=== PATIENT | male | born 1975 | race Two or more races ===

== ENCOUNTER 2023-11-22 11:49 | Outpatient (REF) | payer MEDICAID, SELFPAY ==
[2023-11-22 13:36] LABS: Estimated Average Glucose 223 mg/dL; Hemoglobin A1c % 9.4 % (<6.0)
[2023-11-22 14:01] LABS: Alanine Aminotransferase 46 U/L (0-40); Albumin Level 4.4 g/dL (3.5-5.0); Alkaline Phosphatase 62 U/L (39-117); Anion Gap 16 (12-20); Aspartate Amino Transferase 22 U/L (5-37); Bilirubin Total 0.4 mg/dL (0.0-1.0); Blood Urea Nitrogen 11 mg/dL (9-16); Calcium 9.5 mg/dL (8.4-10.2); Carbon Dioxide 24 mmol/L (22-29); Chloride 102 mmol/L (96-108); Cholesterol 281 mg/dL (<200); Estimated Glomerular Filt Rate > 60; Glucose Random 209 mg/dL (60-115); HDL Cholesterol 25 mg/dL (>40); Sodium 138 mmol/L (135-145); TSH reflex Free T4 0.37 uIU/mL (0.32-4.0); Total Protein 7.8 g/dL (6.5-8.0); Triglycerides 1301 mg/dL (<150)
[2023-11-22 14:21] LABS: Reflex LDLD? No
[2023-11-23 01:59] LABS: CT PCR NOT DETECTED (Not Detect.); NG PCR NOT DETECTED (Not Detect.)
[2023-11-23 08:24] LABS: Syphilis Screen Nonreactive (Nonreactive)
[2023-11-23 08:28] LABS: HBc Num1 0.11 S/CO (0.00-0.79); HBsAGNum1 0.29 S/CO (0.00-0.99); HIV AB/AG Nonreactive (Nonreactive); HIV Num 1 0.04 S/CO (0.00-0.99); Hepatitis A Antibody IgG REACTIVE (Nonreactive); Hepatitis B Core Antibody Nonreactive (Nonreactive); Hepatitis B Surface Antigen Negative (Negative); ~Hepatitis B Surface Antibody NONREACTIVE (Nonreactive); ~Hepatitis C Antibody Nonreactive (Nonreactive)
== END 2023-11-22 11:50 | disposition home or self-care (01) ==
LOC: HO.HHCL 11:49
PROVIDERS: Visit Provider Family Medicine
DX: Z11.3 Encounter for screening for infections with a predominantly sexual mode of transmission (principal); R00.2 Palpitations; Z13.220 Encounter for screening for lipoid disorders; Z01.84 Encounter for antibody response examination; Z83.3 Family history of diabetes mellitus; Z13.1 Encounter for screening for diabetes mellitus
CPT/HCPCS: 0353U; 80053; 80061; 83036; 84443; 86704; 86706; 86708; 86780; 86803; 87340; 87389

== ENCOUNTER 2023-12-12 14:49 | Outpatient (AMB) | payer MEDICAID, SELFPAY ==
--- NOTE | 2023-12-12 14:53 | A.OFFVIS_ITS ---
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 Required: No Accompanied by: Self / Same As Patient Allergies No Known Allergies [No Known Allergies*] Allergy (Unverified 12/12/23 14:58) Medication List - Last Reconciled 12/12/23 by Dio Robb MD alcohol swabs (Alcohol Prep Pads) pad topical QID blood sugar diagnostic (FreeStyle Lite Strips) As directed blood-glucose meter (FreeStyle Mcconnell Lite kit) As directed lancets (FreeStyle Lancets) As directed metformin ER 500 mg PO rosuvastatin 5 mg PO DAILY HPI Comments Details: 48-year-old male patient presenting with a soft tissue mass that has been present on his right upper leg for least 5 years. He reports it was initially on his right wrist and then jumped down to his right hip with has gradually increased in size. Denies any pain, redness or discharge the site. He is requesting excision. [facility] Family History Mother Cancer of unknown origin Social History Alcohol intake: current Alcohol intake frequency: holidays/special occasions only Patient Tobacco Use Status: Never used Tobacco Review of Systems Const All systems reviewed & are unremarkable except as noted in HPI and below Physical Exam Vital Signs: Last Vital Signs Pulse 61 12/12/23 15:00 BP 129/76 12/12/23 15:00 BMI result Body Mass Index 30.5 Const General: cooperative and no acute distress Nutritional Appearance: well nourished Orientation/consciousness: patient oriented x3 Limitations: no limitations HEENT Head: Yes normocephalic and Yes atraumatic Ears: hearing grossly normal bilaterally Resp Effort & Inspection: normal respiratory effort, no audible wheezes, no cough and no respiratory distress Cardio Jugular venous distension: no JVD GI Inspection: Yes normal to inspection Abdomen image: 2 1. 3 cm soft tissue mass within the subcutaneous tissue, mobile, most consistent with lipoma. No overlying skin changes appreciated. Nontender to palpation. Skin Other: Warm, dry, no rash Neuro General: patient oriented x3 Extrem General: Yes no clubbing, cyanosis or edema Assessment & Plan Assessment & Plan (1) Lipoma: Code(s): D17.9 - Benign lipomatous neoplasm, unspecified Category: Medical Qualifiers: Lipoma location: lower extremity Laterality: right Qualified Code(s): D17.23 - Benign lipomatous neoplasm of skin and subcutaneous tissue of right leg Plan 48-year-old male patient presenting with a soft tissue mass of the right upper extremity measuring 3 cm in diameter, most consistent with a lipoma. I recommended an excision under local anesthesia and after discussion of the procedure, risks and alternatives, consents to excision of lipoma right leg. Coding Level of Care Code New Pt Level 4 (98424) Diagnoses Lipoma of right lower extremity D17.23 Lipoma location: lower extremity Laterality: right
[2023-12-12 15:00] VITALS: BP 129/76; PULSE 61; BMI 30.5
== END 2023-12-12 15:05 | disposition home or self-care (01) ==
PROVIDERS: PCP Family Medicine; Referring Provider Family Medicine; Visit Provider Surgery
DX: D17.23 Benign lipomatous neoplasm of skin and subcutaneous tissue of right leg (principal)
CPT/HCPCS: 99204

== ENCOUNTER → 2023-12-12 14:49 | Outpatient (BNVA) | payer MEDICAID, SELFPAY | PROVIDERS: PCP Family Medicine; Visit Provider Surgery | DX: D17.23 Benign lipomatous neoplasm of skin and subcutaneous tissue of right leg (principal) | CPT/HCPCS: 99202 ==

== ENCOUNTER 2023-12-27 | Outpatient (REF) | payer MEDICAID, SELFPAY ==
[2023-12-27 12:47] VITALS: BP 132/77; PULSE 60; RESP 19; TEMP 37.1; O2SAT 97; BMI 30.5
--- NOTE | 2023-12-27 13:43 | P.OP_ITS ---
Operative Note Operative Note Date of Service: 12/27/23 Narrative: Preoperative diagnosis: Lipoma right hip Postoperative diagnosis: Same Procedure: Excision of lipoma right hip Surgeon: Dio Robb MD [employer] Specialist: None Anesthesia: Lidocaine 1% with epinephrine Indications for procedure: 48-year-old male patient presenting with a soft tissue mass located in the right hip measuring approximately 3 cm in diameter. Lesion is mobile within the subcutaneous tissue most consistent with a lipoma. Operative findings: 3 cm lipoma right hip Specimen: Lipoma right hip Estimated blood loss: Less than 1 mL Complications: None Procedure details: Patient was brought to the OR minor surgery room and placed in a supine position. The site of surgery was confirmed by the patient in the right hip. After assuring informed consent, the skin was prepped with Betadine and draped in a sterile fashion. Local anesthesia was infiltrated around the palpable lipoma. A transverse incision was then made with a scalpel and carried out through subcutaneous tissue up to the lipoma. Combination of blunt and sharp dissection was used to dissect the lipoma from the surrounding subcutaneous tissue. Hemostasis was assured using 3-0 Polysorb. Dermis was then reapproximated using interrupted 3-0 Polysorb sutures. Skin was closed using a running subcuticular 4-0 Polysorb suture. Sterile dressings consisting of Steri-Strips, 2 x 2 gauze and Tegaderm were then applied. The patient tolerated the procedure well. He was discharged in stable condition.
== END 2023-12-27 00:01 | disposition home or self-care (01) ==
LOC: HO.MS
PROVIDERS: Visit Provider Surgery
PROC: (CPT 11403; principal; 2023-12-27 13:00)
DX: D17.23 Benign lipomatous neoplasm of skin and subcutaneous tissue of right leg (principal)
CPT/HCPCS: 11403; 88304

== ENCOUNTER → 2023-12-27 13:00 | Outpatient (BNV) | payer MEDICAID, SELFPAY | PROVIDERS: Visit Provider Surgery | DX: D17.23 Benign lipomatous neoplasm of skin and subcutaneous tissue of right leg (principal) | CPT/HCPCS: 27047 ==

== ENCOUNTER 2024-01-17 15:55 | Outpatient (REF) | payer MEDICAID, SELFPAY ==
[2024-01-17 18:05] LABS: Alanine Aminotransferase 23 U/L (0-40); Albumin Level 4.4 g/dL (3.5-5.0); Alkaline Phosphatase 58 U/L (39-117); Aspartate Amino Transferase 15 U/L (5-37); Bilirubin Direct 0.1 mg/dL (0.0-0.5); Bilirubin Total 0.3 mg/dL (0.0-1.0); Cholesterol 125 mg/dL (<200); HDL Cholesterol 23 mg/dL (>40); Total Protein 7.2 g/dL (6.5-8.0); Triglycerides 480 mg/dL (<150)
== END 2024-01-17 15:56 | disposition home or self-care (01) ==
LOC: HO.HHCL 15:55
PROVIDERS: Visit Provider Family Medicine
DX: E11.65 Type 2 diabetes mellitus with hyperglycemia (principal)
CPT/HCPCS: 36415; 80061; 80076

== ENCOUNTER 2025-02-03 09:20 | Outpatient (REF) | payer SELFPAY ==
--- OUTSIDE RECORDS SUMMARY | 2025-02-03 10:09 | XMS_ITS | Encounter Summary ---
Author Organization [facility] Address [address] [place] [address] Care Team Providers Care Wirer Maintenance Name Role Phone Kay Wilkes MD Primary Care Provider [phone] Jose Antonio Singer PharmD Unavailable [phone] Encounter Details Date Type Department Care Team ([facility] st Contact Info) Description 11/23/2023 Orders Only [facility] [address] [place], [place] [phone] Kay Wilkes MD [address] [place], [place] [phone] Social History Tobacco Use Types Packs/Day Years Used Date Smoking Tobacco: Former Cigarettes Smokeless Tobacco: Never Depression Answer Date Recorded Patient Health Questionnaire-9 Score 0 11/22/2023 Patient Health Questionnaire-9 Score 0 11/22/2023 Last PHQ-9: Questionnaire Data Not on file 0 11/22/2023 Housing Stability Answer Date Recorded What is your housing situation today? I have ana garcia 11/22/[address] you li ve. Do you have problems with any of the following? None of the above 11/22/2023 Food Insecurity Answer Date Recorded Within the past 12 months, y ou worried that your food would run out before you got money to buy more: Never True 11/22/2023 Within the past 12 months,th e food you bought just didn't last and you didn't have enough money to get more: Never True Transportation Answer Date Recorded In the past 12 months, has l ack of transportation kept you from medical appts, meetings, work or from getting things needed for daily living? No 11/22/2023 Utilities Answer Date Recorded In the past 12 months, has t he electric, gas, oil or water company threatened to shut off services in your home? No 11/22/2023 Depression Answer Date Recorded Patient Health Questionnaire-2 Score 0 11/22/2023 Sex and Gender Information Value Date Recorded Sex Assigned at Male 05/09/2022 10:20 AM EDT Legal Sex Male 10:20 AM EDT Gender Identity Male 05/09/2022 10:20 AM EDT Sexual Orientation Straight 05/09/2022 10 :20 AM EDT documented as of this encounter Plan of Treatment Upcoming Encounters Date Type Department Care Team (Late st Contact Info) Description 02/26/2025 4:00 PM EDT Office Visit [facility] [address] [place] [address] [phone] Fannie Addison [address] [place] [address] [phone] documented as of this encounter Procedures Procedure Name Priority Date/Time Associated Diagnosis Comments HEPATIC FUNCTION PANEL Routine 01/17/2024 3:59 PM EDT LIPID PANEL, STANDARD Routine 01/17/2024 3:59 PM EDT GROSS AND MICROSCOPIC LEVEL 3 Routine 12/27/2023 1:29 PM EDT documented in this encounter Results * (ABNORMAL) Lipid Panel, Standard (01/17/2024 3:59 PM EDT) Triglycerides 480(H) <150 mg/dL [facility] Comment:Desirable Triglyceri de: less than 150 mg/dLBorderline High Triglyceride 150-199 mg/dLHigh Triglyceride: 200-499 mg/dLVery High Triglyceride: greater than or equal to 5OO mg/dL Cholesterol 125 <200 mg/dL [facility] Comment:Desirable Cholestero l: less than 200 mg/dLBorderline High Cholesterol: 200-239 mg/dLHigh Cholesterol: greater than 239 mg/dL LDL Cholesterol Calculated TNP <100 mg/dL [facility] Comment:Unable to calculate the LDL. The formula of Friedwald,Copeland, and Alejandro is only valid if the triglycerides areless than 400 mg/dl. HDL Cholesterol 23(L) >40 mg/dL [facility] Comment:Desirable HDL: great er than 40 mg/dL Note: This HDL assay may give artificially low results in patients with liver disease. 01/17/2024 3:59 PM EDT 01/17/2024 5:28 PM EDT Kay Wilkes MD LAB BLOOD ORDERABLES Final Resul t Performing Organization Address [facility] Co de Phone Number [facility] [address] [place] [phone] * Hepatic Function Panel (01/17/2024 3:59 PM EDT) Bilirubin, Total 0.3 0.0 - 1.0 mg/dL [facility] Bilirubin, Direct 0.1 0.0 - 0.5 mg/dL [facility] Aspartate Amino Transferase 15 5 - 37 U/L [facility] Alanine Aminotransferase 23 0 - 40 U/L [facility] Total Protein 7.2 6.5 - 8.0 g/dL [facility] Albumin Level 4.4 3.5 - 5.0 g/dL [facility] Alkaline Phosphatase 58 39 - 117 U/L [facility] 01/17/2024 3:59 PM EDT 01/17/2024 5:28 PM EDT Kay Wilkes MD LAB BLOOD ORDERABLES Final Resul t Performing Organization Address [facility] Co de Phone Number [facility] [address] [place] [phone] * Gross and Microscopic Level 3 (12/27/2023 1:29 PM EDT) 12/27/2023 1:29 PM EDT 12/27/2023 2:23 PM EDT Narrative [facility] - 12/28/2023 3:00 PM EDT ----- ------- Name: NikoElias Hatch Age/Sex: 48/M : 1975 Unit#: [id number] Attend Dr: Dio Robb MD Re12/27/23 Status: REG REF Location: [facility] Disch: ----- ------- SPEC : [id number] RECD: 12/27/23-1423 STATUS: TAMMY ALEJANDRO NUM: [id number] LAUREN: 12/27/23-1329 [facility] DR: Dio Robb MD ENTERED: 12/27/23-1434 SP TYPE: Surgical OTHR DR: [facility] ORDERED: Gross Micro L3 Diagnosis Soft tissue, right hip, excision: Mature lobulated adipose tissue consistent with lipoma. Clinical History Benign lipomatous neoplasm of skin. Microscopic Description Microscopic sections reviewed. Material Received Right hip lipoma Gross Description Received in formalin labeled right hip lipoma is a 7.0 x 4.5 x 0.5-1.0 cm pale, joseph-yellow multilobular portion of adipose tissue with scant attached thin and delicate joseph-white fibromembranous tissue. The margins are inked and the specimen is serially sectioned to reveal homogeneous, pale, joseph-yellow lobular fat with thin and delicate joseph- white fibrous septae. No hemorrhagic or necrotic foci are identified. No lymph nodes are identified. Clinician Oncology sections are submitted in cassettes [id number]. CEDS Copies To: [facility] [address] [place] [address] Dio Robb MD [address] [place] [address] [place], [place] [address] ----- ------- Signed (signature on file) Jeanette Skaggs MD 12/28/23 1500 ----- ------- END OF REPORT us Generic External Data Provider LAB CYTOLOGY EMELIA LUIS Final Result [facility] [address] [place] [phone] documented in this encounter Visit Diagnoses Not on filedocumented in this encounter Additional Health Concerns Assessment Noted Time PHQ-9 Depression Total Score: 0 11/22/19 24 9:18 AM EDT documented as of this encounter Care Teams Wirer Maintenance Relationship Specialty Start Date End Date Kay Wilkes [facility] [address] PCP - General Family Medicine 11/22/23 Jose Antonio Singer, [place] [address] Pharmacist Internal Medicine 12/28/23 documented as of this encounter
--- OUTSIDE RECORDS SUMMARY | 2025-02-03 10:09 | XMS_ITS | Clinical Summary ---
Author Organization [facility] Address [address] [place] [address] Care Team Providers Care Rehabilitation Liaison Name Role Phone Unavailable Primary Care Provider Unavailabl e Source Comments PLEASE NOTE, if this patient is a minor, it may be UNLAWFUL to discuss sensitive information that is contained in these records (such as FAMILY PLANNING, MENTAL HEALTH or SUBSTANCE ABUSE) with the minor patient's parent or other person without the patient's specific authorization.[facility] Social History Tobacco Use Types Packs/Day Years Used Date Smoking Tobacco: Never Assessed Social Connections Answer Date Recorded Connectedness 0 03/26/2024 Financial Resource Strain Answer Date R ecorded Financial Resource Strain 0 2023 Stress Answer Date Recorded Stress 0 03/26/2024 Physical Activity Answer Date Recorded Physical Activity 0 03/26/2024 Food Insecurity Answer Date Recorded Food 0 04/05/2024 Transportation Needs Answer Date Record ed Transportation 0 03/26/2024 Housing Stability Answer Date Recorded Housing 0 03/26/2024 Safety and Environment Answer Date Fritz rded Safety 0 03/26/2024 Utilities Answer Date Recorded Utilities 0 03/26/2024 Employment Answer Date Recorded Stress 0 03/26/2024 Sex and Gender Information Value Date Recorded Sex Assigned at Male 10/02/2023 9:52 AM PDT Legal Sex Male 9:52 AM PDT Gender Identity Male 10/02/2023 9:52 AM PDT Sexual Orientation Straight 10/02/2023 9: 52 AM PDT Last Filed Vital Signs Vital Sign Reading Time Taken Comments Blood Pressure 114/71 04/02/2024 2:52 PM EDT Pulse 72 04/02/2024 2:52 PM EDT Temperature - - Respiratory Rate - - Oxygen Saturation - - Inhaled Oxygen Concentration - - Weight - - Height - - Body Mass Index - - Plan of Treatment Health Maintenance Due Date Last Done Comments Anxiety Screening [address] Colonography 2021 Colonoscopy 2021 Colorectal Cancer Screening 2021 FIT/gFOBT 2021 Fecal DNA 2021 Flexible Sigmoidoscopy 2021 [id number] (2023- season) 2024 Imm-Hepatitis B (3 of 3 - 19 + 3-dose series) 05/22/2024 03/27/2024, 07/27/2022 Alcohol and Drug Screen 07/10/2024 Depression Annual Screen 07/10/2024 Imm-Influenza (#1) 2025 07/27/2022 Hypertension Screening (#1) 04/02/2025 Diabetes Screening 02/12/2027 02/13/2024, 11/22/2023 Lipid Screening 01/16/2029 01/17/2024 Imm-DTaP/Tdap/Td (2 - Td or Tdap) 11/21/2033 024 HIV Screening Completed 11/22/2023, 11/22/2023 Hepatitis C Screening Completed 11/22/[address] [employer]
--- OUTSIDE RECORDS SUMMARY | 2025-02-03 10:09 | XMS_ITS | Clinical Summary ---
Author Organization [facility] Address [address] [place] [address] Care Team Providers Care Deposition Operator Name Role Phone Deanna Harper MD Primary Care Provider Social History Tobacco Use Types Packs/Day Years Used Date Smoking Tobacco: Never Assessed Sex and Gender Information Value Date Recorded Sex Assigned at Not on file Legal Sex Male 2:12 AM EST Gender Identity Not on file Sexual Orientation Not on file Plan of Treatment Health Maintenance Due Date Last Done Comments DTaP,Tdap,and Td Vaccines (1 - Tdap) 1995 Hepatitis B Vaccines (1 of 3 - 19+ 3-dose series) 1995 COVID-19 Vaccine ( - 2023-2 5 season) 2024 Depression Screening 07/10/2024 Influenza Vaccine (#1) 2025 HIB Vaccines Aged Out No longer eligi ble based on patient's age to complete this topic HPV Vaccines Aged Out No longer eligi ble based on patient's age to complete this topic Hepatitis A Vaccines Aged Out No long er eligible based on patient's age to complete this topic IPV Vaccines Aged Out No longer eligi ble based on patient's age to complete this topic MMR Vaccines Aged Out No longer eligi ble based on patient's age to complete this topic Meningococcal ACWY Vaccine Aged Out N o longer eligible based on patient's age to complete this topic Meningococcal B Vaccine Aged Out No l onger eligible based on patient's age to complete this topic Pneumococcal Vaccine: Pediat rics (0 to 5 Years) and At-Risk Patients (6 to 49 Years) Aged Out No longer eligible b ased on patient's age to complete this topic RSV Immunization Patients Un sree 20 months Aged Out No longer eligible b ased on patient's age to complete this topic Varicella Vaccines Aged Out No longer eligible based on patient's age to complete this topic Care Teams Deposition Operator Relationship Specialty Start Date End Date Deanna Harper MD PCP - General Internal Medicine 03/26/18
[2025-02-03 11:37] LABS: MANUAL DIFF FLAG NO
[2025-02-03 11:40] LABS: Hematocrit 45.2 % (42.0-52.0); Hemoglobin 15.0 g/dl (14.0-18.0); Imm Gran Abs Auto 0.02 X10*3/uL (0.00-0.03); Imm Gran Pct Auto 0.3 % (0.0-0.4); Lymphocytes Absolute Auto 2.5 X10*3/uL (1.2-4.9); Mean Corpuscular HGB Conc 33.2 g/dl (31.0-36.0); Mean Corpuscular Hemoglobin 28.0 pg (27.0-33.0); Mean Corpuscular Volume 84.5 fL (80.0-98.0); NRBC Abs Auto 0.000 X10*3/uL (0.0-0.012); NRBC Pct Auto 0.0 /100WBC (0.0-0.2); Platelet Count 293 X10*3/uL (160-400); Red Blood Count 5.35 X10*6/uL (4.60-5.80); White Blood Count 6.3 X10*3/uL (4.8-10.8)
[2025-02-03 12:21] LABS: Syphilis Screen Nonreactive (Nonreactive)
[2025-02-03 12:32] LABS: Alanine Aminotransferase 48 U/L (0-40); Albumin Level 4.4 g/dL (3.5-5.0); Alkaline Phosphatase 61 U/L (39-117); Anion Gap 11 (12-20); Aspartate Amino Transferase 27 U/L (5-37); Blood Urea Nitrogen 15 mg/dL (9-16); Calcium 8.8 mg/dL (8.4-10.2); Carbon Dioxide 26 mmol/L (22-29); Chloride 104 mmol/L (96-108); Cholesterol 328 mg/dL (<200); Estimated Glomerular Filt Rate > 60; HDL Cholesterol 25 mg/dL (>40); Lipase 31 U/L (8-78); Potassium 3.8 mmol/L (3.3-5.1); Sodium 137 mmol/L (135-145); Total Protein 7.3 g/dL (6.5-8.0); Triglycerides 1332 mg/dL (<150)
[2025-02-03 12:37] LABS: Microalbum/Creatinine Ratio Ur 34.3 ug/mg cr (<30)
[2025-02-03 12:44] LABS: Reflex LDLD? Yes
[2025-02-03 12:48] LABS: Folate 12.2 ng/mL (> or = 4.0); Vitamin B12 717 pg/mL (200-900)
[2025-02-03 14:06] LABS: HBsAGNum1 0.28 S/CO (0.00-0.99); HIV Num 1 0.06 S/CO (0.00-0.99); Hepatitis B Surface Antigen Negative (Negative); ~HepC Num1 0.10 S/CO (0.00-0.79); ~Hepatitis C Antibody Nonreactive (Nonreactive)
== END 2025-02-03 09:21 | disposition home or self-care (01) ==
LOC: HO.HHCL 09:20
PROVIDERS: PCP Family Medicine; Visit Provider Family Medicine
DX: Z11.3 Encounter for screening for infections with a predominantly sexual mode of transmission (principal); E11.65 Type 2 diabetes mellitus with hyperglycemia; E78.5 Hyperlipidemia, unspecified; I10 Essential (primary) hypertension; R63.4 Abnormal weight loss; Z11.4 Encounter for screening for human immunodeficiency virus [HIV]; Z11.59 Encounter for screening for other viral diseases
CPT/HCPCS: 36415; 80053; 80061; 82043; 82570; 82607; 82746; 83690; 83721; 84443; 85025; 86780; 86803; 87340; 87389